=== PATIENT | female | born 1990 | race Caucasian/White ===

== ENCOUNTER 2021-07-02 07:52 | Inpatient (IN) | payer BC ==
[2021-07-02] MEDS ORDERED: DINOPROSTONE 10 MG VAGINAL SUPPOSITORY VG ONE (08:29)
[2021-07-02] MEDS: ELECTROLYTE-148 SOLN 1,000 ML IV SCH (08:30)
[2021-07-02 08:59] VITALS: BMI 37.8
[2021-07-02 09:27] LABS: BASO % 0.3 % (0-2.0); EOS % 0.8 % (0-4.5); HEMATOCRIT 33.5 % (32.4-45.2); HEMOGLOBIN 11.8 GM/dL (10.7-15.3); LYMPH % 20.7 % (8-40); MCH 30.9 pg (25.7-33.7); MCHC 35.1 g/dl (32.0-36.0); MEAN CELL VOLUME 87.9 fl (80-96); MEAN PLT VOLUME 6.4 fl (7.5-11.1); NEUT % 72.2 % (42.8-82.8); PLATELET COUNT 242 10^3/uL (134-434); RBC 3.81 M/mm3 (3.60-5.2); RDW 12.5 % (11.6-15.6); WHITE BLOOD COUNT 9.7 K/mm3 (4.0-10.0)
[2021-07-02 09:32] LABS: INR 1.02 (0.83-1.09); PROTHROMBIN TIME (PATIENT) 11.7 SEC (9.7-13.0)
[2021-07-02 09:35] LABS: ACTIVATED PTT 29.6 SECONDS (25.2-36.5)
[2021-07-02 09:43] LABS: BLOOD UREA NITROGEN 10.8 mg/dL (7-18); CALCIUM 9.7 mg/dL (8.5-10.1)
[2021-07-02 09:46] LABS: CREATININE 0.6 mg/dL (0.55-1.3)
[2021-07-02] MEDS ORDERED: FENTANYL/BUPIVACAINE/NS/PF - PCEA - 50 ML DISP.SYRIN EP ONE ×2 (14:22→18:05)
[2021-07-02] MEDS: FENTANYL/BUPIVACAINE/NS/PF - PCEA - 50 ML DISP.SYRIN EP SCH ×2 (14:45→18:09)
[2021-07-02] MEDS ORDERED: NALOXONE HCL 0.4 MG/ML VIAL IVPUSH PRN (15:25)
[2021-07-02] MEDS ORDERED: AMPICILLIN SODIUM 2 GM VIAL ONE (16:26)
[2021-07-02] MEDS ORDERED: AMPICILLIN - 2 GM in SODIUM CHLORIDE 100 ML IVPB ONE (16:46)
[2021-07-02] MEDS ORDERED: OXYTOCIN 30 UNITS in 0.9% NS 30 UNIT/500 ML INFUS.BAG IVPB SCH (19:00)
[2021-07-02] MEDS ORDERED: OXYTOCIN 30 UNITS in 0.9% NS 30 UNIT/500 ML INFUS.BAG IVPB ONE (19:02)
[2021-07-02] MEDS ORDERED: AMPICILLIN SODIUM 1 GM VIAL ONE (19:19)
[2021-07-02] MEDS: AMPICILLIN - 1 GM in SODIUM CHLORIDE 100 ML IVPB SCH ×2 (19:20→23:25)
[2021-07-02] MEDS ORDERED: LIDOCAINE 1%/EPI 1:100000 (20 ML MULTI DOSE VIAL) ONE (19:50)
[2021-07-02] MEDS ORDERED: LIDOCAINE HCL/PF 2% SDV 5ML VIAL ONE ×2 (19:50→19:53)
[2021-07-02] MEDS: CEFAZOLIN 2 GM in DEXTROSE 5%-WATER - 100 ML IVPB SCH (20:15)
[2021-07-02] MEDS ORDERED: MIDAZOLAM HCL 2 MG/2 ML SINGLE DOSE VIAL ONE ×2 (20:34→20:41)
[2021-07-02] MEDS ORDERED: PROPOFOL 20 ML ONE (20:42)
[2021-07-02] MEDS ORDERED: OXYTOCIN 10 UNITS/ML VIAL ONE (20:44)
[2021-07-02] MEDS ORDERED: morphine SULFATE/PF 1 MG/2 ML (2cc Syringe - QUVA) ONE ×2 (21:35)
[2021-07-02 21:45] LABS: CORD HCO3 21.9 mmHg (20-29); CORD PCO2 56.2 mmHg (30-78); CORD pH 7.209 (7.14-7.44)
[2021-07-02 21:46] LABS: CORD BASE EXCESS -5.6 mmol/L (0-2); CORD HCO3 20.6 mmHg (20-29); CORD PCO2 42.9 mmHg (30-78); CORD pH 7.3 (7.14-7.44)
[2021-07-02] MEDS ORDERED: METHYLERGONOVINE MALEATE 0.2 MG/1 ML AMP IM PRN (22:03)
[2021-07-02] MEDS ORDERED: ACETAMINOPHEN 325 MG TABLET (FP) PO PRN (22:03)
[2021-07-02] MEDS ORDERED: SENNOSIDES/DOCUSATE COMBO (SENNA PLUS) TABLET (UD) PO PRN (22:03)
[2021-07-02] MEDS ORDERED: BENZOCAINE 20% 57 GM BOTTLE TP PRN (22:03)
[2021-07-02] MEDS ORDERED: BENZOCAINE 28 GM HEMORRHOIDAL OINTMENT TP PRN (22:03)
[2021-07-02] MEDS ORDERED: WITCH HAZEL 50% (TUCKS) 40 PAD/JAR PAD TP PRN (22:03)
[2021-07-02] MEDS ORDERED: ceFAZolin 2 GRAM PREMIX BAG IVPB SCH (22:15)
[2021-07-02] MEDS: OXYTOCIN 20 UNITS in 0.9% NS 20 UNIT/1,000 ML INFUS.BAG IV SCH (23:28)
[2021-07-03] MEDS: IBUPROFEN 800 MG/8 ML IJ IVPB PRN ×2 (00:33→09:36)
[2021-07-03] MEDS: CEFAZOLIN 2 GM in DEXTROSE 5%-WATER - 100 ML IVPB SCH ×2 (06:06→14:20)
[2021-07-03] MEDS: ENOXAPARIN NA (PORCINE) 40 MG/0.4 ML DISP.SYRIN SQ SCH (09:35)
[2021-07-03] MEDS: PRENATAL VITAMINS W/ FOLIC ACID TABLET (FP) PO SCH (09:35)
[2021-07-03] MEDS ORDERED: oxyCODONE HCL 5 MG TABLET PO PRN ×2 (10:04)
[2021-07-03 10:20] LABS: BASO % 0.3 % (0-2.0); EOS % 0.4 % (0-4.5); HEMATOCRIT 27.8 % (32.4-45.2); HEMOGLOBIN 9.7 GM/dL (10.7-15.3); MCH 30.9 pg (25.7-33.7); MCHC 34.8 g/dl (32.0-36.0); MEAN PLT VOLUME 6.6 fl (7.5-11.1); MONO % 5.2 % (3.8-10.2); NEUT % 78.1 % (42.8-82.8); PLATELET COUNT 220 10^3/uL (134-434); RBC 3.13 M/mm3 (3.60-5.2); RDW 12.4 % (11.6-15.6); WHITE BLOOD COUNT 11.9 K/mm3 (4.0-10.0)
[2021-07-03] MEDS: IBUPROFEN 600 MG TABLET (FP) PO PRN (18:55)
[2021-07-03] MEDS: SIMETHICONE 80 MG TAB.CHEW (FP) PO PRN (18:56)
[2021-07-03] MEDS ORDERED: BISACODYL 10 MG SUPP.RECT RC PRN (22:04)
[2021-07-04] MEDS: IBUPROFEN 600 MG TABLET (FP) PO PRN ×3 (05:55→19:50)
[2021-07-04] MEDS: SIMETHICONE 80 MG TAB.CHEW (FP) PO PRN ×3 (05:58→19:50)
[2021-07-04] MEDS: ENOXAPARIN NA (PORCINE) 40 MG/0.4 ML DISP.SYRIN SQ SCH (09:19)
[2021-07-04] MEDS: PRENATAL VITAMINS W/ FOLIC ACID TABLET (FP) PO SCH (09:19)
[2021-07-04] MEDS: ELECTROLYTE-148 SOLN 1,000 ML IV SCH (20:07)
[2021-07-04] MEDS: OXYTOCIN 20 UNITS in 0.9% NS 20 UNIT/1,000 ML INFUS.BAG IV SCH (20:07)
[2021-07-05 07:42] LABS: BASO % 0.5 % (0-2.0); EOS % 1.9 % (0-4.5); HEMOGLOBIN 8.5 GM/dL (10.7-15.3); LYMPH % 23.6 % (8-40); MCH 31.3 pg (25.7-33.7); MCHC 35.3 g/dl (32.0-36.0); MEAN CELL VOLUME 88.7 fl (80-96); MEAN PLT VOLUME 6.5 fl (7.5-11.1); MONO % 6.7 % (3.8-10.2); NEUT % 67.3 % (42.8-82.8); PLATELET COUNT 214 10^3/uL (134-434); RBC 2.71 M/mm3 (3.60-5.2); RDW 12.9 % (11.6-15.6); WHITE BLOOD COUNT 8.8 K/mm3 (4.0-10.0)
[2021-07-05] MEDS: IBUPROFEN 600 MG TABLET (FP) PO PRN (08:48)
[2021-07-05 09:14] VITALS: BP 126/87; PULSE 98; TEMP 98.3
[2021-07-05] MEDS: ENOXAPARIN NA (PORCINE) 40 MG/0.4 ML DISP.SYRIN SQ SCH (09:31)
[2021-07-05] MEDS: PRENATAL VITAMINS W/ FOLIC ACID TABLET (FP) PO SCH (09:31)
[2021-07-05] MEDS: SIMETHICONE 80 MG TAB.CHEW (FP) PO PRN (10:42)
== END 2021-07-05 13:45 | disposition home or self-care (01) | DRG 788 ==
LOC: JLDR 07:52 → J3W 23:40
PROVIDERS: ADMIT Obstetrics & Gynecology; ATTEND Obstetrics & Gynecology
PROC: 10D00Z1 Extraction of Products of Conception, Low, Open Approach (ICD-10-PCS; principal; 2021-07-02)
DX: O48.0 Post-term pregnancy (principal); O61.0 Failed medical induction of labor; O99.820 Streptococcus B carrier state complicating pregnancy; O99.213 Obesity complicating pregnancy, third trimester; O77.0 Labor and delivery complicated by meconium in amniotic fluid; Z3A.40 40 weeks gestation of pregnancy; Z37.0 Single live birth; O90.81 Anemia of the puerperium
CPT/HCPCS: 36415; 36600; 80048; 82803; 85025; 85610; 85730; 86780; 86850; 86900; 86901; 88307-TC; C9803-CS; U0003; U0005